=== PATIENT | female | born 1945 | race Caucasian/White ===

== ENCOUNTER 2024-09-22 17:29 | Inpatient (IN) | payer MEDICARE, MEDICAID ==
[~2024-09-22] VITALS: Ht 149.9 cm; Wt 68.8 kg
[2024-09-22] MEDS ORDERED: ASPI-226 PO (19:50)
[2024-09-22] MEDS ORDERED: ATOR80TA59 PO (19:50)
[2024-09-22] MEDS ORDERED: PREG75CA3 PO (19:50)
[2024-09-22] MEDS ORDERED: ARIP10TA63 PO (19:50)
[2024-09-22] MEDS ORDERED: FERR325T19 PO (19:50)
[2024-09-22] MEDS ORDERED: RANO10002 PO (19:50)
[2024-09-22] MEDS ORDERED: ALEN70TA82 PO (19:50)
[2024-09-22] MEDS ORDERED: METF-838 PO (19:50)
[2024-09-22] MEDS ORDERED: EZET10TA21 PO (19:50)
[2024-09-22] MEDS ORDERED: CYAN1000VL INJ (19:50)
[2024-09-22] MEDS ORDERED: HOME MED LIST COMPLETE! XX SCH (19:55)
[2024-09-22] MEDS ORDERED: MOM 30ML SUSPENSION UDC PO PRN (22:15)
[2024-09-22] MEDS ORDERED: MAALOX 30 ML SUSP *UDC PO PRN (22:15)
[2024-09-22] MEDS: PREGABALIN 75 MG CAP(LYRICA) PO SCH (22:52)
[2024-09-22] MEDS: FERROUS SULFATE 325MG TAB PO SCH (22:53)
[2024-09-22] MEDS: ATORVASTATIN 20 MG TAB PO SCH (22:53)
[2024-09-22] MEDS: RANOLAZINE 500MG ER TAB PO SCH (23:04)
[2024-09-22] MEDS: EZETIMIBE 10MG TABLET (ZETIA) PO SCH (23:04)
[2024-09-23] MEDS: diphenhydrAMINE 25MG CAP PO PRN (00:48)
[2024-09-23 01:18] VITALS: BP 121/64; TEMP 98.2; O2SAT 99
[2024-09-23 06:54] VITALS: BP 107/74; TEMP 97.5; O2SAT 67
[2024-09-23] MEDS ORDERED: metFORMIN XR 500MG TAB *GLUCOPHAGE XR PO SCH (08:00)
[2024-09-23] MEDS ORDERED: ARIPiprazole 10 MG TAB NG SCH (09:00)
[2024-09-23] MEDS ORDERED: ASPIRIN 81MG CHEW TABLET PO SCH (09:00)
[2024-09-23] MEDS: ASPIRIN 81MG ENTERIC TABLET PO SCH (11:53)
[2024-09-23] MEDS: PREGABALIN 75 MG CAP(LYRICA) PO SCH (11:53)
[2024-09-23] MEDS: RANOLAZINE 500MG ER TAB PO SCH (12:07)
[2024-09-23] MEDS: metFORMIN XR 500MG TAB *GLUCOPHAGE XR PO SCH (12:07)
[2024-09-23 14:59] VITALS: BP 104/59; TEMP 98.7; O2SAT 100
[2024-09-23] MEDS: traZODone 50 MG TAB PO PRN (21:38)
[2024-09-23] MEDS: EZETIMIBE 10MG TABLET (ZETIA) PO SCH (21:39)
[2024-09-23] MEDS: FERROUS SULFATE 325MG TAB PO SCH (21:39)
[2024-09-23] MEDS: ATORVASTATIN 20 MG TAB PO SCH (21:39)
[2024-09-23] MEDS: ACETAMINOPHEN 325 MG TAB PO PRN (21:46)
[2024-09-24 06:46] VITALS: BP 109/68; TEMP 97; O2SAT 98
[2024-09-24] MEDS: lamoTRIgine 25MG TAB PO SCH (08:55)
[2024-09-24 15:29] VITALS: BP 117/58; TEMP 98.6; O2SAT 98
[2024-09-25 06:27] VITALS: BP 124/78; TEMP 98; O2SAT 98
[2024-09-25] MEDS ORDERED: PREVNAR-20 VACCINE 0.5ML SYRINGE IM.IMMUN ONE (15:00)
[2024-09-25] MEDS: FLUBLOK(EGGFREE) TRIVAL(24-25) VACCINE PF 0.5ML SYRINGE 18YRS & OLDER IM.IMMUN ONE (15:27)
[2024-09-25 15:44] VITALS: BP 116/67; TEMP 97; O2SAT 100
[2024-09-26 06:33] VITALS: BP 117/73; TEMP 96.8; O2SAT 90
[2024-09-26] MEDS: PREVNAR-20 VACCINE 0.5ML SYRINGE IM.IMMUN ONE (08:49)
[2024-09-26 15:29] VITALS: BP 113/70; TEMP 97.8; O2SAT 97
[2024-09-27 06:25] VITALS: BP 122/76; TEMP 96.6; O2SAT 98
[2024-09-27 15:58] VITALS: BP 110/58; TEMP 97.4; O2SAT 99
[2024-09-28 06:34] VITALS: BP 139/89; TEMP 97.9; O2SAT 100
[2024-09-28 14:57] VITALS: BP 113/59; TEMP 98; O2SAT 100
[2024-09-29 06:38] VITALS: BP 130/65; TEMP 96.5; O2SAT 100
[2024-09-29 16:43] VITALS: BP 130/58; TEMP 98.3; O2SAT 100
[2024-09-30 06:17] VITALS: BP 119/68; TEMP 97.8; O2SAT 100
[2024-09-30] MEDS ORDERED: POLYVINYL ALCOHOL OPHTH SOLN 15ML (LIQUITEARS) OU PRN (09:10)
[2024-09-30 15:15] VITALS: BP 133/72; TEMP 98.3; O2SAT 100
[2024-10-01 06:23] VITALS: BP 140/82; TEMP 97.7; O2SAT 98
[2024-10-01 16:06] VITALS: BP 117/66; TEMP 97.9; O2SAT 100
[2024-10-02 06:17] VITALS: BP 148/78; TEMP 97.6; O2SAT 100
[2024-10-02 14:49] VITALS: BP 127/68; TEMP 97.7; O2SAT 98
[2024-10-03 06:50] VITALS: BP 142/72; TEMP 97; O2SAT 98
[2024-10-03 15:04] VITALS: BP 113/61; TEMP 98.4; O2SAT 100
[2024-10-04 06:05] VITALS: BP 155/96; TEMP 97; O2SAT 99
[2024-10-04] MEDS: LIDOCAINE 5% (LIDODERM) PATCH TD SCH (08:09)
[2024-10-04 14:50] VITALS: BP 127/67; TEMP 97.9; O2SAT 100
[2024-10-05 06:34] VITALS: BP 141/72; TEMP 96.9; O2SAT 99
[2024-10-05 17:12] VITALS: BP 105/60; TEMP 97.3; O2SAT 99
[2024-10-06] MEDS: IBUPROFEN 400MG TAB PO PRN (00:41)
[2024-10-06] MEDS: ALENDRONATE 35MG TABLET PO SCH (07:00)
[2024-10-07 06:14] VITALS: BP 139/79; TEMP 98; O2SAT 100
[2024-10-07 15:32] VITALS: BP 112/59; TEMP 97.9; O2SAT 98
[2024-10-08] MEDS: ALENDRONATE 35MG TABLET PO ONE (05:42)
[2024-10-08 06:21] VITALS: BP 125/73; TEMP 97; O2SAT 100
[2024-10-08 15:13] VITALS: BP 130/75; TEMP 97.3; O2SAT 100
[2024-10-09 15:38] VITALS: BP 118/57; TEMP 98; O2SAT 99
[2024-10-10 14:53] VITALS: BP 153/82; TEMP 97.7; O2SAT 100
[2024-10-11 06:21] VITALS: BP 134/74; TEMP 97.3; O2SAT 98
[2024-10-11 16:14] VITALS: BP 130/69; TEMP 97.4; O2SAT 98
[2024-10-12 06:40] VITALS: BP 123/65; TEMP 96.4; O2SAT 100
[2024-10-12 18:42] VITALS: BP 112/67; TEMP 97.6; O2SAT 100
[2024-10-13 06:26] VITALS: BP 137/63; TEMP 97.3; O2SAT 98
[2024-10-13] MEDS: PREGABALIN 75 MG CAP(LYRICA) PO SCH (08:57)
[2024-10-13 15:33] VITALS: BP 113/79; TEMP 98.1; O2SAT 100
[2024-10-14 06:39] VITALS: BP 116/62; TEMP 97.2; O2SAT 99
[2024-10-14 15:12] VITALS: BP 125/65; TEMP 98.1; O2SAT 100
[2024-10-15 06:18] VITALS: BP 137/70; TEMP 97.6; O2SAT 98
[2024-10-15 14:53] VITALS: BP 121/58; TEMP 98.6; O2SAT 99
[2024-10-16 06:15] VITALS: BP 118/59; TEMP 97.5; O2SAT 96
[2024-10-16 15:36] VITALS: BP 123/58; TEMP 97.6; O2SAT 100
[2024-10-17 06:25] VITALS: BP 127/78; TEMP 97; O2SAT 98
[2024-10-17 16:20] VITALS: BP 121/61; TEMP 99; O2SAT 100
[2024-10-18] MEDS: **PENDING PPD ENTRY XX SCH (09:00)
[2024-10-18] MEDS ORDERED: TUBERCULIN PPD 5 UNITS/0.1 ML ID ONE (13:45)
[2024-10-18] MEDS: TUBERCULIN PPD 5 UNITS/0.1 ML ID ONE (15:51)
[2024-10-18 16:10] VITALS: BP 110/56; TEMP 97.3; O2SAT 100
[2024-10-19 06:26] VITALS: BP 152/71; TEMP 97; O2SAT 100
[2024-10-19 07:30] VITALS: BP 108/58; TEMP 97.9; O2SAT 100
[2024-10-19 14:46] VITALS: BP 134/66; TEMP 99; O2SAT 100
[2024-10-20 06:24] VITALS: BP 136/82; TEMP 97.5; O2SAT 100
[2024-10-20] MEDS ORDERED: PPD DOCUMENTATION ENTRY MISC XX SCH (10:00)
[2024-10-20] MEDS: PPD DOCUMENTATION ENTRY MISC XX ONE (14:20)
[2024-10-20 16:13] VITALS: BP 119/63; TEMP 98; O2SAT 99
[2024-10-21 06:23] VITALS: BP 119/61; TEMP 97.4; O2SAT 99
[2024-10-21 15:37] VITALS: BP 123/64; TEMP 97.8; O2SAT 100
[2024-10-22 06:39] VITALS: BP 133/76; TEMP 97.4; O2SAT 100
[2024-10-22 16:30] VITALS: BP 131/62; TEMP 99; O2SAT 99
[2024-10-23 06:39] VITALS: BP 110/58; TEMP 97.4; O2SAT 97
[2024-10-23] MEDS ORDERED: LAMI25TA PO (12:15)
[2024-10-23] MEDS ORDERED: ALEN70TA82 PO (12:15)
[2024-10-23] MEDS ORDERED: METF-838 PO (12:15)
[2024-10-23] MEDS ORDERED: RANO10002 PO (12:15)
[2024-10-23] MEDS ORDERED: EZET10TA21 PO (12:15)
[2024-10-23] MEDS ORDERED: ATOR80TA59 PO (12:15)
[2024-10-23] MEDS ORDERED: ARTIDRO4 OU (12:15)
[2024-10-23] MEDS ORDERED: LIDO5TD TD (12:15)
[2024-10-23] MEDS ORDERED: FERR325T19 PO (12:15)
[2024-10-23] MEDS ORDERED: ASPI-226 PO (12:15)
[2024-10-23] MEDS ORDERED: LYRI75CA PO (12:56)
[2024-10-23 16:51] VITALS: BP 105/59; TEMP 98.5; O2SAT 99
[2024-10-24 06:30] VITALS: BP 131/59; TEMP 97.6; O2SAT 98
[2024-10-24 06:34] VITALS: BP 142/87; TEMP 97.3; O2SAT 97
[2024-10-24 14:58] VITALS: BP 122/66; TEMP 97.7; O2SAT 95
[2024-10-25 06:34] VITALS: BP 149/87; TEMP 97; O2SAT 100
== END 2024-10-25 12:17 | disposition home or self-care (01) | DRG 885 ==
LOC: M ED 17:29 → EDBD 17:29 → M ED INP 22:12 → M PSY 23:22
PROVIDERS: ADMIT Psychiatry & Neurology Psychiatry; ATTEND Psychiatry & Neurology Psychiatry
DX: F31.30 Bipolar disorder, current episode depressed, mild or moderate severity, unspecified (principal); R45.851 Suicidal ideations; E87.1 Hypo-osmolality and hyponatremia; I25.10 Atherosclerotic heart disease of native coronary artery without angina pectoris; I11.0 Hypertensive heart disease with heart failure; E11.65 Type 2 diabetes mellitus with hyperglycemia; E78.5 Hyperlipidemia, unspecified; Z95.0 Presence of cardiac pacemaker; Z90.79 Acquired absence of other genital organ(s); Z79.82 Long term (current) use of aspirin; Z79.84 Long term (current) use of oral hypoglycemic drugs; Z79.899 Other long term (current) drug therapy; Z91.013 Allergy to seafood; Z91.018 Allergy to other foods; Z95.5 Presence of coronary angioplasty implant and graft; M25.511 Pain in right shoulder; R07.89 Other chest pain